=== PATIENT | male | born 1985 | race Caucasian/White ===

== ENCOUNTER 2016-11-26 00:09 | Emergency (ER) | payer OTHER ==
[~2016-11-26 00:09] MED LIST: MUPIROCIN22 GM TOP
== END 2016-11-26 04:37 | disposition home or self-care (01) ==
LOC: ER1 00:09
DX: S70.362A Insect bite (nonvenomous), left thigh, initial encounter (principal); L03.116 Cellulitis of left lower limb; J34.89 Other specified disorders of nose and nasal sinuses; F17.210 Nicotine dependence, cigarettes, uncomplicated; Z88.0 Allergy status to penicillin; W57.XXXA Bitten or stung by nonvenomous insect and other nonvenomous arthropods, initial encounter
CPT/HCPCS: 99281

== ENCOUNTER 2020-09-03 06:15 | Emergency (ER) | payer OTHER ==
[~2020-09-03 06:15] MED LIST changes: +BACTROBAN OINT22 GM; +DOXYCYCLINE HY100 MG PO; +ELIMITE60 GM TP; +Magic Mouth Wash PO
[2020-09-03 07:02] LABS: HEMOGLOBIN 14.1 gm/dl (14.0-17.5); RED BLOOD COUNT 4.77 M/UL (4.20-5.50); WHITE BLOOD COUNT 6.5 K/UL (4.5-11.0)
[2020-09-03 07:14] LABS: BUN/CREATININE RATIO 12 (0-10)
[2020-09-03] MEDS ORDERED: CITRATE OF MAG296 ML PO (09:47)
== END 2020-09-03 09:57 | disposition home or self-care (01) ==
LOC: ER1 06:15
PROVIDERS: Emergency Medicine
DX: K59.00 Constipation, unspecified (principal); R74.8 Abnormal levels of other serum enzymes; F17.200 Nicotine dependence, unspecified, uncomplicated; Z88.0 Allergy status to penicillin
CPT/HCPCS: 80053; 80307; 81001; 82550; 82553; 83690; 83874; 84484; 85025; 93005; 99284; G0480; Q9967